=== PATIENT | male | born 1950 | race Caucasian/White ===

== ENCOUNTER 2016-07-30 02:25 | Emergency (ER) | payer MEDICARE | END 2016-07-30 03:29 | disposition home or self-care (01) | LOC: ED 02:25 | DX: Z53.21 Procedure and treatment not carried out due to patient leaving prior to being seen by health care provider (principal) ==

== ENCOUNTER 2016-08-16 23:16 | Emergency (ER) | payer MEDICARE ==
[2016-08-17] MEDS ORDERED: IBUPROFEN 600 MG TABLET ONE (00:05)
--- NOTE | 2016-08-17 07:37 | RAD ---
Exam: Two-view right shoulder Comparison: 08/09/2011, 11/23/2010 INDICATION: Multiple falls recently, right shoulder pain. FINDINGS: AP and transscapular y views of the right shoulder were obtained. Postsurgical changes of right shoulder arthroplasty are again appreciated, with a humeral component. Alignment is maintained. There is no evidence of hardware loosening or failure. No acute displaced fracture is identified. There is chronic deformity of the scapula which may be related to remote trauma. Mild degenerative changes are seen within the acromioclavicular joint. Visualized right hemithorax within normal limits. IMPRESSION: Stable appearance of the right shoulder dating back to 08/09/2011 without acute osseous abnormality or significant interval change.
--- NOTE | 2016-08-17 07:38 | RAD ---
Exam: Pelvis and two-view right hip COMPARISON: None INDICATION: Multiple falls recently, right hip pain. FINDINGS: An AP view of the pelvis and AP and frog-leg lateral views of the right hip were obtained. Osteopenia. Postsurgical changes are seen within the proximal left femur but incompletely evaluated. Hip joint spaces are preserved and symmetric, and femoral heads are normal in contour. No acute displaced fracture is identified within the pelvis or right hip. Sacroiliac joints are symmetric and within normal limits. Degenerative changes are noted within the lower lumbar spine. IMPRESSION: No acute fracture within the pelvis or right hip.
== END 2016-08-17 00:25 | disposition home or self-care (01) ==
LOC: ED 23:16
DX: M25.551 Pain in right hip (principal); M25.511 Pain in right shoulder; G89.4 Chronic pain syndrome; Z86.718 Personal history of other venous thrombosis and embolism; Z79.01 Long term (current) use of anticoagulants; W19.XXXA Unspecified fall, initial encounter; Y92.9 Unspecified place or not applicable